=== PATIENT | male | born 1970 | race Caucasian/White ===

== ENCOUNTER 2019-09-22 18:04 | Emergency (ER) | payer SELFPAY ==
[~2019-09-22] VITALS: Ht 170.2 cm; Wt 84.4 kg
[2019-09-22 18:13] VITALS: BP 140/98
--- NOTE | 2019-09-22 18:19 | NUR ---
Patient ambulated to bed 2. RN evaluating patient at bedside.
--- NOTE | 2019-09-22 18:22 | NUR ---
Pt c/o bilateral hearing loss s/p washing his ears with water while showering 2 weeks ago. Denies ear pain, drainage, or itchiness. TM IS VISIBLE IN RIGHT EAR BUT INVISIBLE IN LEFT EAR DUE TO EAR WAX. PT DENIES ANY FEVER, CP, SOB, OR COUGH, N/V/D, ABDOMINAL PAIN, OR SICK CONTACTS AT THIS TIME; PATIENT STATES PAIN OF 0/10 AT THIS TIME; VSS; PATIENT POSITIONED FOR COMFORT; HOB ELEVATED; BEDRAILS UP X1; BED DOWN. ER MD MADE AWARE OF PT STATUS.
--- NOTE | 2019-09-22 18:30 | NUR ---
Dr. Glynn is evaluating pt at bedside.
--- NOTE | 2019-09-22 18:40 | NUR ---
EMT IS CLEARING PT'S EARS AT BEDSIDE.
[2019-09-22 18:50] VITALS: BP 128/89
--- NOTE | 2019-09-22 18:50 | NUR ---
Patient discharged with v/s stable. Written and verbal after care instructions given and explained. Patient alert, oriented and verbalized understanding of instructions. Ambulatory with steady gait. All questions addressed prior to discharge. ID band removed. Patient advised to follow up with PMD. Rx of Debrox given. Patient educated on indication of medication including possible reaction and side effects. Opportunity to ask questions provided and answered.
== END 2019-09-22 18:50 | disposition home or self-care (01) ==
LOC: MED 18:04
DX: H61.23 Impacted cerumen, bilateral (principal)
CPT/HCPCS: 99282

== ENCOUNTER 2022-05-16 18:26 | Emergency (ER) | payer SELFPAY ==
[~2022-05-16] VITALS: Ht 167.6 cm; Wt 87.1 kg
[2022-05-16 18:38] VITALS: BP 18/83
--- NOTE | 2022-05-16 20:03 | NUR ---
CLARY Alvarado examining patient.
[2022-05-16] MEDS ORDERED: IBUP-2213 PO (20:37)
[2022-05-16 20:58] VITALS: BP 121/78
== END 2022-05-16 20:58 | disposition home or self-care (01) ==
LOC: MED 18:26
DX: S46.812A Strain of other muscles, fascia and tendons at shoulder and upper arm level, left arm, initial encounter (principal); X58.XXXA Exposure to other specified factors, initial encounter; Y93.89 Activity, other specified; Y92.89 Other specified places as the place of occurrence of the external cause; Y99.0 Civilian activity done for income or pay
CPT/HCPCS: 73030; 99283